=== PATIENT | male | born 2000 | race Two or more races ===

== ENCOUNTER 2019-05-16 13:46 | Emergency (ER) | payer MEDICAID ==
[~2019-05-16] VITALS: Ht 193 cm; Wt 104.3 kg
[2019-05-16 16:30] VITALS: BP 132/74
== END 2019-05-16 17:47 | disposition home or self-care (01) ==
LOC: ER 13:46
DX: B37.0 Candidal stomatitis (principal); K21.9 Gastro-esophageal reflux disease without esophagitis